=== PATIENT | female | born 1990 | race Caucasian/White ===

== ENCOUNTER 2018-05-04 12:48 | Emergency (ER) | payer MEDICAID ==
[~2018-05-04] VITALS: Ht 157.5 cm; Wt 56.0 kg
[2018-05-04 12:51] VITALS: BP 132/85
[2018-05-04] MEDS ORDERED: TETanus/Pertussis (Acell)/Diphther VAC/PF (Tdap-Adult) 0.5ml syringe IM ONE (12:55)
[2018-05-04] MEDS ORDERED: AMOX-419 PO (13:03)
== END 2018-05-04 13:43 | disposition home or self-care (01) ==
LOC: ER 12:49
DX: S61.551A Open bite of right wrist, initial encounter (principal); L03.113 Cellulitis of right upper limb; Z79.2 Long term (current) use of antibiotics; W55.01XA Bitten by cat, initial encounter; Y93.89 Activity, other specified; Y92.89 Other specified places as the place of occurrence of the external cause; Y99.8 Other external cause status
CPT/HCPCS: 90471; 90715; 99283

== ENCOUNTER 2025-02-02 17:00 | Emergency (ER) | payer MEDICAID ==
[~2025-02-02] VITALS: Ht 157.5 cm; Wt 57.3 kg
[2025-02-02 17:13] VITALS: BP 127/82; TEMP 98.5
--- NOTE | 2025-02-02 18:59 | ELECTROCARDIOGRAPH REPORT ---
[facility] Test Date: 2025-02-02 Test Time: 18:57:46 Pat Name: YAIR WYATT Department: [facility]- Patient ID: 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 Reading MD: Measurements Intervals [place] Rate: 73 P: 41 OH: 127 QRS: 56 QRSD: 94 T: 57 QT: 413 QTc: 456 Interpretive Statements Sinus rhythm Please click the below link to view image of tracing.
--- NOTE | 2025-02-02 18:59 | Physician Documentation ---
History of Present Illness ~ Chief Complaint: Flu Symptoms Stated Complaint: MULTIPLE MEDICAL SYMPTOMS Primary Medical Doctor: ANSLEY CORDON Patient is a 34-year-old female that presents to the emergency department for evaluation of COVID symptoms times 7-10 days. Patient also reports chest discomfort at this time. Patient reports intermittent episodes of throat tightness last episode was 2 days ago throat does not currently feel tight. Medication Reconciliation Allergies: Coded Allergies: No Known Allergies (Unverified , 05/04/18) Past Medical History Past Medical History: No Pertinent History Past Surgical History: no surgical history Drug Use: none Lives In: Home Physical Exam Vital Signs: Temperature: 98.5, Source: Temporal, Heart Rate: 84, Respiratory Rate: 16, BP: 127/82, Pulse Oximetry: 96, Weight: 57.300 Progress Results/Orders Results/Orders Orders - PHILIPPE RIVAS Stat Ekg (02/02/25 18:49) Vital Signs 02/02/25 17:13 Temp 98.5 Pulse 84 Resp 16 B/P (MAP) 127/82 Pulse Ox 96 Departure Referrals: NO PRIMARY CARE PROVIDER (PCP) PHILIPPE RIVAS Feb 02, 2025 18:59
[2025-02-02 19:12] VITALS: PULSE 87; RESP 15; O2SAT 100
== END 2025-02-02 23:43 | disposition left against medical advice (07) ==
LOC: ER 17:01
DX: J11.1 Influenza due to unidentified influenza virus with other respiratory manifestations (principal); R07.9 Chest pain, unspecified; Z53.21 Procedure and treatment not carried out due to patient leaving prior to being seen by health care provider; Z20.822 Contact with and (suspected) exposure to COVID-19
CPT/HCPCS: 36415; 87811; 93005; 99284